=== PATIENT | male | born 1960 | race Caucasian/White ===

== ENCOUNTER → 2017-06-04 | Outpatient (CLI) | payer MEDICARE, MEDICAID ==
[~2017-06-04] MED LIST: ASPI81TA39 PO; BUSP10TA23 PO; FISH1CAP49 PO; LEVO125 PO; LORA0.5T2 PO; MULT-1238 PO; TAMS0.4C32 PO; TRAZ-144 PO
== END | disposition home or self-care (01) ==
LOC: RADMN 10:36
PROVIDERS: ATTEND Internal Medicine
DX: I67.82 Cerebral ischemia (principal); I63.8 Other cerebral infarction; R90.82 White matter disease, unspecified; G93.89 Other specified disorders of brain
CPT/HCPCS: 70551

== ENCOUNTER → 2017-08-31 | Outpatient (CLI) | payer MEDICARE, MEDICAID | END | disposition home or self-care (01) | LOC: RADMN 16:26 | PROVIDERS: ATTEND Podiatrist Foot & Ankle Surgery | DX: M81.0 Age-related osteoporosis without current pathological fracture (principal); M79.89 Other specified soft tissue disorders; L89.519 Pressure ulcer of right ankle, unspecified stage ==

== ENCOUNTER → 2017-10-12 | Outpatient (CLI) | payer MEDICARE, MEDICAID | END | disposition home or self-care (01) | LOC: RADPV 08:58 | PROVIDERS: ATTEND Internal Medicine Cardiovascular Disease | DX: I73.9 Peripheral vascular disease, unspecified (principal) | CPT/HCPCS: 93925 ==